=== PATIENT | female | born 1955 | race Caucasian/White ===

== ENCOUNTER 2019-06-17 07:04 | Outpatient (CLI) | payer MEDICARE, SELFPAY ==
--- NOTE | 2019-06-17 | EST_ITS ---
Patient Info Name: Alexa Powell Age: 63 years : 1955 Gender: Female Ht: 60 in Wt: 220 lbs BSA: 2.12 m2 Heart Rhythm: Sinus Rhythm Exam Date: 06/17/2019 8:38 AM Exam Location: [facility] Stress Patient Status: Outpatient Admit Date: 06/17/2019 Staff Ordering Physician: PHYSICIAN NOT ON STAFF, NONSTAFF Attending Provider: PHYSICIAN NOT ON STAFF, NONSTAFF Exercise Technologist: Benitez Dunne, RDCS, RT Nurse: Ramonita Simmons, ANP, ACNP-BC Exam Type: CA stress kyleigh w NM Study Info A regadenoson stress test was performed. Summary 1. No abnormal ST/T wave changes with exercise. 2. No arrhythmias were observed during the examination. 3. Please correlate with nuclear medicine images, reported separately. 4. No chest discomfort with stress test. Protocol: Lexiscan Stress ECG Details Stage: REST Duration (min): 0 min : 15 sec HR (bpm): 89 SBP (mmHg): --- DBP (mmHg): --- Stage: REST Duration (min): 11 min : 19 sec HR (bpm): 85 SBP (mmHg): 150 DBP (mmHg): 91 Stage: STAGE 1 Duration (min): 1 min : 0 sec HR (bpm): 119 SBP (mmHg): 175 DBP (mmHg): 113 Stage: RECOVERY Duration (min): 1 min : 0 sec HR (bpm): 118 SBP (mmHg): 175 DBP (mmHg): 113 Stage: RECOVERY Duration (min): 2 min : 0 sec HR (bpm): 108 SBP (mmHg): 175 DBP (mmHg): 113 Stage: RECOVERY Duration (min): 3 min : 0 sec HR (bpm): 108 SBP (mmHg): 153 DBP (mmHg): 107 Stage: RECOVERY Duration (min): 4 min : 0 sec HR (bpm): 100 SBP (mmHg): 153 DBP (mmHg): 107 Stage: RECOVERY Duration (min): 5 min : 0 sec HR (bpm): 103 SBP (mmHg): 147 DBP (mmHg): 105 Stage: RECOVERY Duration (min): 6 min : 0 sec HR (bpm): 96 SBP (mmHg): 147 DBP (mmHg): 105 Stage: RECOVERY Duration (min): 7 min : 0 sec HR (bpm): 101 SBP (mmHg): 147 DBP (mmHg): 105 Stage: RECOVERY Duration (min): 7 min : 45 sec HR (bpm): 93 SBP (mmHg): 147 DBP (mmHg): 105 Rest HR: 85 bpm Peak HR: 122 bpm Rest Sys BP: 150 mmHg Peak Sys BP: 175 mmHg Max Pred HR: 155 bpm % Max Pred HR: 79 % Target HR: 132 bpm Max RPP: 21,350 bpm*mmHg Total Time: 1 min : 0 sec Rest Garvin BP: 91 mmHg Peak Garvin BP: 113 mmHg Total Dose: 0.4 mg Resting ECG Normal sinus rhythm. Anteroseptal myocardial infarction. Stress ECG No abnormal ST/T wave changes with exercise. Arrhythmias No arrhythmias were observed during the examination. Report Signatures
--- NOTE | ~2019-06-17 | NM_ITS ---
EXAMINATION: NM kyleigh stress w perfusion DATE: 06/17/2019 11:11 INDICATION: Soreness of breath. Localized edema. TECHNIQUE: Rest images were obtained following intravenous administration of 11.8 mCi Tc99m tetrofosm in (Myoview). The patient was infused intravenously with Lexiscan (Regadenoson). Then, 33 mCi Tc99m t etrofosmin (Myoview) was administered intravenously, and stress images were obtained. Data was recons tructed into short axis and horizontal and vertical long axis SPECT images. Gated SPECT images were a lso obtained. COMPARISON: None. FINDINGS: There is no definite reversible or fixed perfusion abnormality to suggest ischemia or infar ction. There is normal left ventricular chamber size, wall motion and ejection fraction. Left ventr icular ejection fraction measures 62%. IMPRESSION: 1. Normal myocardial perfusion at rest and during stress. 2. Left ventricular ejection fraction measuring 62%. Reviewed, dictated and finalized at location A. CTOR SELECTION AND ADMINISTRATION
== END 2019-06-17 07:05 | disposition home or self-care (01) ==
LOC: ANHIMG 07:14
DX: R06.02 Shortness of breath (principal); R60.0 Localized edema
CPT/HCPCS: 78452; 93017; A9502; J2785

== ENCOUNTER 2021-03-20 00:10 | Day surgery (SDC) | payer MEDICARE, SELFPAY ==
[2021-02-08 09:22] VITALS: BMI 40.1
[2021-03-06 13:45] VITALS: BMI 40.1
--- NOTE | 2021-03-20 07:10 | PM.HPGS ---
History of Present Illness History of Present Illness Consent: Risks, benefits, and alternatives have been discussed and questions answered. Patient agrees to proceed with procedure. Chief complaint: neoplasm screening Narrative: Alexa Powell is a 65 year old female referred for colon cancer screening Review of Systems Review of Systems: All systems reviewed & are unremarkable except as noted in HPI and below PMFSH Past Medical History Medical History Arthritis Diabetes Eczema HTN (hypertension) Hypothyroidism Morbid obesity with BMI of 40.0-44.9, adult CHATO (obstructive sleep apnea) Psoriasis Social History Social History Smoking packs per day: 1 Smoking cigarettes per day: 20.0 Years smoked: 15 Smoking pack-years: 15.00 Smoking status: Former smoker Tobacco type: cigarettes Alcohol intake: current Alcohol use details: once a month,glass of wine Substance use: never Substance use type: does not use Living arrangements: alone Spiritual care concerns: No Meds Home Medications and Allergies Home Medications Medication Instructions Recorded Confirmed Type atenolol 50 mg PO BID 02/08/21 03/20/21 History cholecalciferol (vitamin D3) 25 mcg PO DAILY 02/08/21 03/20/21 History [Vitamin D3] glimepiride 2 mg PO DAILY 02/08/21 03/20/21 History levothyroxine 25 mcg PO DAILY 02/08/21 03/20/21 History metformin 500 mg PO BID 02/08/21 03/20/21 History Allergies Allergy/AdvReac Type Severity Reaction Status Date / Time shellfish derived Allergy Severe Hives Verified 03/20/21 08:07 Sulfa (Sulfonamide Allergy Intermediate Hives Verified 03/20/21 08:07 Antibiotics) Exam Resp: Auscultation: clear to auscultation bilaterally Cardio: Rate: regular rate Rhythm: regular rhythm GI: GI Palp: Yes Soft to palpation and No Tenderness to palpation present (GI) Assessment and Plan Assessment and plan (1) Colon cancer screening: Code(s): Z12.11 - Encounter for screening for malignant neoplasm of colon Status: Acute Assessment and Plan: Colonoscopy with possible biopsy or polypectomy or cautery or injection of substances.
--- NOTE | 2021-03-20 07:53 | WPDANESEPPF ---
Anes - Initial Pre Proc Eval Procedure: Operation Date: 03/20/21 09:00 Proposed Procedures p Screening Colonoscopy - Wu Colindres MD Date/Time: 03/20/21 07:53 Surgeon: Wu Colindres MD Pre Op Diagnosis: neoplasm screening Patient Data Age: 65 Gender: F Height: 1.52 m Weight: 93.2 kg Allergies Allergy/AdvReac Type Severity Reaction Status Date / Time shellfish derived Allergy Severe Hives Verified 03/20/21 08:07 Sulfa (Sulfonamide Allergy Intermediate Hives Verified 03/20/21 08:07 Antibiotics) Home Medications Medication Instructions Recorded Confirmed Type atenolol 50 mg PO BID 02/08/21 03/20/21 History cholecalciferol (vitamin D3) 25 mcg PO DAILY 02/08/21 03/20/21 History [Vitamin D3] glimepiride 2 mg PO DAILY 02/08/21 03/20/21 History levothyroxine 25 mcg PO DAILY 02/08/21 03/20/21 History metformin 500 mg PO BID 02/08/21 03/20/21 History Patient hx anesthesia problems: none Family hx anesthesia problems: none Results Review: All pre-operative results and documents have been reviewed as part of the pre-operative evaluation. [facility] Past Medical History Medical History (Updated 03/20/21 @ 07:55 by Fernie Llanes MD) Arthritis Diabetes Eczema HTN (hypertension) Hypothyroidism Morbid obesity with BMI of 40.0-44.9, adult CHATO (obstructive sleep apnea) Psoriasis Social History Social History Smoking packs per day: 1 Smoking cigarettes per day: 20.0 Years smoked: 15 Smoking pack-years: 15.00 Smoking status: Former smoker Tobacco type: cigarettes Alcohol intake: current Alcohol use details: once a month,glass of wine Substance use: never Substance use type: does not use Living arrangements: alone Spiritual care concerns: No Anes - Eval Final PreProcedure Day of Procedure 03/20/21 07:53 Patient weight: morbidly obese Heart: regular rate and rhythm Lungs: clear to auscultation and normal air movement Airway: Mallampati scale class II Neurological: alert and oriented Last oral intake: >/= 8 hours ASA classification: III Emergent: no Anesthetic plan: proceed Anesthesia type and monitoring: general GIVS Results Review: All pre-operative results and documents have been reviewed as part of the pre-operative evaluation. Informed Consent: The patient's anesthetic plan and its attendant risks and benefits were discussed with the patient/family/POA. Questions were solicited and answers provided to the satisfaction of the patient/family/POA.
[2021-03-20 08:09] VITALS: BP 122/58; PULSE 66; RESP 18; TEMP 35.8; O2SAT 96; BMI 38.5
[2021-03-20] MEDS: LACTATED RINGERS 1,000 ML 150 ML IV CONT (08:32)
[2021-03-20 08:33] LABS: Glucose Point of Care 110 mg/dl (65-105)
[2021-03-20 09:19] VITALS: BP 90/45; PULSE 64; RESP 15; O2SAT 98
[2021-03-20 09:29] VITALS: BP 110/59; PULSE 59; RESP 20; O2SAT 99
[2021-03-20 09:39] VITALS: BP 117/69; PULSE 52; RESP 17; O2SAT 99
== END 2021-03-20 09:50 | disposition home or self-care (01) ==
PROVIDERS: PCP Internal Medicine; Visit Provider Internal Medicine Gastroenterology
PROC: 0DJD8ZZ Inspection of Lower Intestinal Tract, Via Natural or Artificial Opening Endoscopic (ICD-10-PCS; CPT 45378; principal; 2021-03-20 09:00)
DX: Z12.11 Encounter for screening for malignant neoplasm of colon (principal); D12.3 Benign neoplasm of transverse colon; K57.30 Diverticulosis of large intestine without perforation or abscess without bleeding; I10 Essential (primary) hypertension; E11.9 Type 2 diabetes mellitus without complications; E03.9 Hypothyroidism, unspecified; G47.33 Obstructive sleep apnea (adult) (pediatric); Z79.84 Long term (current) use of oral hypoglycemic drugs; Z87.891 Personal history of nicotine dependence; E66.01 Morbid (severe) obesity due to excess calories; Z68.38 Body mass index [BMI] 38.0-38.9, adult
CPT/HCPCS: 45381; 45385; 82948; 88305; J2704; J7120

== ENCOUNTER 2021-11-13 08:57 | Emergency (ER) | payer MEDICARE, SELFPAY ==
[2021-11-13] VITALS (17 sets, daily range): BP systolic 128–175; BP diastolic 56–75; PULSE 46–63; RESP 12–18; TEMP 36.4; O2SAT 98–100
--- NOTE | ~2021-11-13 | XR_ITS ---
EXAMINATION: XR chest 2V DATE: 11/13/2021 09:36 INDICATION: Left chest pain. TECHNIQUE: Frontal and lateral views of the chest were obtained. COMPARISON: None. FINDINGS: The chest demonstrates clear lungs without pneumonia, pleural effusion, or pneumothorax. Th e heart size is normal. There is a surgical clip in the abdomen. IMPRESSION: 1. No acute cardiopulmonary disease. Reviewed, dictated and finalized at location A.
--- NOTE | 2021-11-13 08:58 | ECG_ITS ---
Measurements Intervals [place] Rate: 56 P: 8 [place]: 183 QRS: -21 QRSD: 89 T: 7 QT: 414 QTc: 401 Interpretive Statements SINUS BRADYCARDIA BORDERLINE R WAVE PROGRESSION, ANTERIOR LEADS BORDERLINE ECG Electronically Signed On 11-13-2021 11:02:57 CDT by Cruzito Bobby D.O.
[2021-11-13] MEDS: ASPIRIN 81 MG CHEWABLE TABLET 324 MG PO (09:08)
[2021-11-13 09:36] LABS: Basophils Absolute Auto 0.1 K/mm3 (0.0-0.1); Basophils Percent Auto 1.3 % (0.2-1.2); Eosinophils Absolute Auto 0.3 K/mm3 (0-0.3); Hematocrit 41.5 % (37.0-47.0); Hemoglobin 14.4 g/dL (12.0-15.0); Immature Granulocyte Absolute 0.02 K/mm3 (0.00-0.031); Immature Granulocyte Percent A 0.3 % (0-0.5); Lymphocytes Absolute Auto 1.58 K/mm3 (0.9-3.2); Mean Corpuscular HGB Conc 34.7 g/dl (32-36); Mean Corpuscular Hemoglobin 31.8 pg (26-34); Mean Corpuscular Volume 91.6 fl (80-100); Mean Platelet Volume 9.8 fl (7.4-10.4); Monocytes Absolute Auto 0.6 K/mm3 (0.1-0.6); Neutrophils Absolute Auto 3.8 K/mm3 (1.3-6.7); Neutrophils Percent Auto 59.4 % (45.5-73.1); Platelet Count Result 257 k/mm3 (150-375); Red Blood Count 4.53 M/mm3 (4.2-5.4); Red Cell Distribution Width 13.1 % (11.5-14.5); White Blood Count 6.3 K/mm3 (4.5-10.0)
[2021-11-13 09:43] LABS: INR 1.1; Prothrombin Time 13.9 Seconds (11.1-14.7)
[2021-11-13 09:44] LABS: Partial Thromboplastin Time 37.9 SECONDS (22.3-36.8)
[2021-11-13 09:45] LABS: Alanine Aminotransferase 89 U/L (6-35); Albumin Level 4.7 g/dL (3.5-5.1); Alkaline Phosphatase 97 U/L (38-126); Anion Gap 5 mmol/L (8-16); Aspartate Amino Transferase 61 U/L (14-36); Bilirubin,Total 0.5 mg/dL (0.2-1.3); Blood Urea Nitrogen 17 mg/dL (7-17); Calcium 9.4 mg/dL (8.4-10.2); Carbon Dioxide 28 mmol/L (22-30); Chloride 104 mmol/L (98-107); Estimated CRCL calculation 75 ml/min; Estimated Glomerular Filt Rate > 60; Glucose 125 mg/dL (65-110); Lipase 183 U/L (23-300); Potassium 4.1 mmol/L (3.4-5.0); Sodium 137 mmol/L (137-145)
[2021-11-13 09:56] LABS: Troponin I < 0.012 ng/mL (0.000-0.034)
--- NOTE | 2021-11-13 10:15 | ED.CHESTPAIN ---
HPI - Chest Pain General Chief Complaint: Chest Pain <Debra Rosenberg PA-C - Last Filed: 11/13/21 17:42> Stated Complaint: chest pain/ anxiety <ADRIAN Dyer Last Filed: 11/13/21 17:42> Time Seen by Provider: 11/13/21 09:48 <ADRIAN Dyer Last Filed: 11/13/21 17:42> Source: patient <ADRIAN Dyer Last Filed: 11/13/21 17:42> Mode of arrival: ambulatory <ADRIAN Dyer Last Filed: 11/13/21 17:42> Limitations: no limitations <ADRIAN Dyer Last Filed: 11/13/21 17:42> History of Present Illness HPI narrative: Patient is a 66-year-old female who presents to the ED with report of chest pain. Patient reports having intermittent left upper chest pain, radiating into her left shoulder for the past 1 week. She reports having an episode of pain at least once a day. She describes the pain as a burning sensation and tightness. She does have a history of anxiety and GERD and has tried taking omeprazole and an antianxiety medication with the pain, which has provided relief. She denies any exertional chest pain. She notes that typically she experiences the pain at night after she has been working out in the yard and comes into rest. Again denies any pain while exerting herself throughout the day. The pain became worse last night, which prompted patient to come to the ED today. She does note she has been under increased stress lately and has had 6 recent deaths in her life in the last 2 weeks. She has a history of high blood pressure and diabetes, but denies any previous cardiac disease. She had a cardiac evaluation over 10 years ago, it was normal at that time. No smoking. Positive family history. Patient denies any fever, chills, cough, cold symptoms, difficulty breathing, nausea, vomiting, diaphoresis, BLE pain or edema. <ADRIAN Dyer Last Filed: 11/13/21 17:42> Related Data Home Medications: Home Medications Medication Instructions Recorded Confirmed atenolol 50 mg tablet 50 mg PO BID 02/08/21 03/20/21 cholecalciferol (vitamin D3) 25 25 mcg PO DAILY 02/08/21 03/20/21 mcg (1,000 unit) capsule (Vitamin D3) glimepiride 2 mg tablet 2 mg PO DAILY 02/08/21 03/20/21 levothyroxine 25 mcg tablet 25 mcg PO DAILY 02/08/21 03/20/21 metformin 500 mg tablet,extended 500 mg PO BID 02/08/21 03/20/21 release 24 hr <Debra Rosenberg PA-C - Last Filed: 11/13/21 17:42> Allergies/Adverse Reactions: Allergies Allergy/AdvReac Type Severity Reaction Status Date / Time shellfish derived Allergy Severe Hives Verified 03/20/21 08:07 Sulfa (Sulfonamide Allergy Intermediate Hives Verified 03/20/21 08:07 Antibiotics) <Debra Rosenberg PA-C - Last Filed: 11/13/21 17:42> Review of Systems Review of Systems: CONSTITUTIONAL: Denies fever, chills, or sweats. ENT: Denies rhinorrhea, congestion, sore throat. CARDIOVASCULAR: Reports L sided CP into L shoulder. Denies BLE edema. RESPIRATORY: Denies cough or dyspnea. GASTROINTESTINAL: Denies abdominal pain, nausea, vomiting, or diarrhea. GENITOURINARY: Denies dysuria or hematuria. MUSCULOSKELETAL: Denies back pain, BLE pain. NEUROLOGIC: Denies headache, numbness, or weakness. <Debra Rosenberg PA-C - Last Filed: 11/13/21 17:42> All systems reviewed & are unremarkable except as noted in HPI and below <Debra Rosenberg PA-C - Last Filed: 11/13/21 17:42> [facility] Past Medical History Medical History: Medical History (Updated 11/13/21 @ 14:06 by Debra Rosenberg PA-C) Arthritis Diabetes Eczema GERD (gastroesophageal reflux disease) HTN (hypertension) Hypothyroidism Morbid obesity with BMI of 40.0-44.9, adult CHATO (obstructive sleep apnea) Psoriasis <Debra Rosenberg PA-C - Last Filed: 11/13/21 17:42> Surgical History Surgical History: Surgical History (Updated 11/13/21 @ 11:56 by Debra Rosenberg PA-C) No pertinent past surgical history <Debra Rosenberg PA-C - Last Filed: 11/13
[2021-11-13 12:27] LABS: Troponin I < 0.012 ng/mL (0.000-0.034)
[2021-11-13] MEDS: BELLADONNA ALK/PHENOB ELIX 10 ML, MAG HYDROX/ALUMINUM HYD/SIMETH 30 ML, LIDOCAINE HCL 2... PO (13:02)
== END 2021-11-13 14:48 | disposition home or self-care (01) ==
PROVIDERS: Emergency Provider Emergency Medicine; PCP Internal Medicine
DX: R07.89 Other chest pain (principal); K21.9 Gastro-esophageal reflux disease without esophagitis; E11.9 Type 2 diabetes mellitus without complications; E03.9 Hypothyroidism, unspecified; M19.90 Unspecified osteoarthritis, unspecified site; F41.9 Anxiety disorder, unspecified; G47.33 Obstructive sleep apnea (adult) (pediatric); E66.01 Morbid (severe) obesity due to excess calories; Z68.37 Body mass index [BMI] 37.0-37.9, adult; Z87.891 Personal history of nicotine dependence; Z79.84 Long term (current) use of oral hypoglycemic drugs; R00.1 Bradycardia, unspecified; R94.31 Abnormal electrocardiogram [ECG] [EKG]
CPT/HCPCS: 36415; 71046; 80053; 83690; 84484; 85025; 85610; 85730; 93005; 99284; A9270

== ENCOUNTER 2022-08-22 19:24 | Emergency (ER) | payer MEDICARE, SELFPAY ==
--- NOTE | ~2022-08-22 | XR_ITS ---
EXAMINATION: XR chest 2V 08/22/2022 21:04 INDICATION: Chest pain PROCEDURE: 2 view chest COMPARISON: 11/13/2021 FINDINGS: The lungs are clear. The cardiomediastinal silhouette is within normal limits. There are no pleural effusions. There is no pneumothorax suspected. Lateral view is extremely limited by tech nique. IMPRESSION: 1: NO ACUTE CARDIOPULMONARY DISEASE. Reviewed, dictated and finalized at location A.
[2022-08-22 19:48] VITALS: BP 151/67; PULSE 53; RESP 15; O2SAT 97
--- NOTE | 2022-08-22 19:48 | ECG_ITS ---
Measurements Intervals [place] Rate: 51 P: 43 [place]: 178 QRS: -25 QRSD: 97 T: 10 QT: 418 QTc: 388 Interpretive Statements SINUS BRADYCARDIA MINIMAL VOLTAGE CRITERIA FOR LVH, CONSIDER NORMAL VARIANT [MEETS CRITERIA IN ONE OF: R(aVL), S(V1), R(V5), R(V5/V6)+S(V1)] POOR R-WAVE PROGRESSION COMPARED TO ECG 11/13/2021 09:13:23 NO SIGNIFICANT CHANGES Electronically Signed On 08-23-2022 18:17:11 CDT by London Hutchison M.D.
--- NOTE | 2022-08-22 20:22 | ED.CHESTPAIN ---
HPI - Chest Pain General Chief Complaint: Chest Pain Stated Complaint: INTERMITTENT CHEST PAIN X 4 DAYS Time Seen by Provider: 08/22/22 19:53 History of Present Illness HPI narrative: Patient is a 66-year-old female with a history of hypertension, hypothyroidism, diabetes presenting with lightheadedness. Patient states that for the last several days she has had intermittent lightheadedness associated with nausea. 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 When she stood back up she felt very lightheaded, warm, nauseated. States that she suddenly felt very emotional so she told her boss she could not be at work any longer. States that she actually saw her PCP earlier today. He gave her a referral for cardiology. States that she has an appointment with cardiology tomorrow morning. States that she has had intermittent left-sided sharp chest pain for the last 4 to 5 days. States it is random. No new dyspnea or leg swelling. No fevers, cough, vomiting. No new numbness or weakness or difficulty walking or talking. Related Data Home Medications Medication Instructions Recorded Confirmed atenolol 50 mg tablet 50 mg PO BID 02/08/21 03/20/21 cholecalciferol (vitamin D3) 25 25 mcg PO DAILY 02/08/21 03/20/21 mcg (1,000 unit) capsule (Vitamin D3) glimepiride 2 mg tablet 2 mg PO DAILY 02/08/21 03/20/21 levothyroxine 25 mcg tablet 25 mcg PO DAILY 02/08/21 03/20/21 metformin 500 mg tablet,extended 500 mg PO BID 02/08/21 03/20/21 release 24 hr Allergies Allergy/AdvReac Type Severity Reaction Status Date / Time shellfish derived Allergy Severe Hives Verified 08/22/22 19:58 Sulfa (Sulfonamide Allergy Intermediate Hives Verified 08/22/22 19:58 Antibiotics) Review of Systems Review of Systems: All systems reviewed & are unremarkable except as noted in HPI and below PMFSH Past Medical History Medical History Arthritis Diabetes Eczema GERD (gastroesophageal reflux disease) HTN (hypertension) Hypothyroidism Morbid obesity with BMI of 40.0-44.9, adult CHATO (obstructive sleep apnea) Psoriasis Surgical History Surgical History No pertinent past surgical history Family History Family History Other Heart disease Social History Social History Smoking packs per day: 1 Smoking cigarettes per day: 20.0 Years smoked: 15 Smoking pack-years: 15.00 Smoking status: Former smoker Tobacco type: cigarettes Alcohol intake: current Alcohol use details: once a month,glass of wine Substance use: never Substance use type: does not use Living arrangements: alone Spiritual care concerns: No Exam Narrative: GENERAL: Well-appearing, well-nourished, and in no acute distress. HEAD: Normocephalic, atraumatic. EYES: PERRLA and EOMI. ENT: Nares clear, no rhinorrhea or epistaxis. Mucous membranes moist. NECK: Supple. CHEST: Clear to auscultation. No respiratory distress. HEART: Regular rate and rhythm. No murmur heard. Normal peripheral pulses. ABDOMEN: Soft, nontender, nondistended EXTREMITIES: Normal range of motion. No edema. SKIN: Warm, dry, no rash. NEURO: No focal deficits. Alert and oriented x3. PSYCH: Normal mood and affect. Course Vital Signs Vital signs: Vital Signs Pulse Rate 53 L 08/22/22 19:48 Respiratory Rate 15 08/22/22 19:48 Blood Pressure 151/67 H 08/22/22 19:48 Pulse Oximetry 97 08/22/22 19:48 Oxygen Delivery Room Air 08/22/22 19:48 Pulse Rate 58 L 08/22/22 22:18 Respiratory Rate 13 08/22/22 21:28 Blood Pressure 156/77 H 08/22/22 22:18 Pulse Oximetry 100 08/22/22 21:28 Oxygen Delivery Room Air 08/22/22 19:48 MDM - Chest Pain MDM Narrative Medical decision making narrati
[2022-08-22 20:24] VITALS: PULSE 56
[2022-08-22] MEDS: SODIUM CHLORIDE 0.9% IV 1,000 ML 999 ML IV CONT (20:32)
[2022-08-22] MEDS: MORPHINE SULFATE (*CRX) 2 MG/ML INJ IV PUSH (20:33)
[2022-08-22 21:26] LABS: Basophils Absolute Auto 0.1 K/mm3 (0.0-0.1); Eosinophils Absolute Auto 0.2 K/mm3 (0-0.3); Eosinophils Percent Auto 2.9 % (0-4.4); Hematocrit 39.2 % (37.0-47.0); Immature Granulocyte Absolute 0.01 K/mm3 (0.00-0.031); Immature Granulocyte Percent A 0.1 % (0-0.5); Lymphocytes Percent Auto 31.6 % (18.3-44.2); Mean Corpuscular HGB Conc 33.2 g/dl (32-36); Mean Corpuscular Hemoglobin 32.2 pg (26-34); Mean Platelet Volume 9.9 fl (7.4-10.4); Monocytes Absolute Auto 0.7 K/mm3 (0.1-0.6); Monocytes Percent Auto 8.7 % (2.6-8.5); Neutrophils Absolute Auto 4.4 K/mm3 (1.3-6.7); Neutrophils Percent Auto 55.7 % (45.5-73.1); Platelet Count Result 233 k/mm3 (150-375); Red Blood Count 4.04 M/mm3 (4.2-5.4); Red Cell Distribution Width 13.2 % (11.5-14.5); White Blood Count 7.9 K/mm3 (4.5-10.0)
[2022-08-22 21:28] VITALS: BP 178/71; PULSE 51; RESP 13; O2SAT 100
[2022-08-22 21:39] LABS: Alanine Aminotransferase 125 U/L (6-35); Albumin Level 4.1 g/dL (3.5-5.1); Alkaline Phosphatase 91 U/L (38-126); Anion Gap 6 mmol/L (8-16); Aspartate Amino Transferase 101 U/L (14-36); Bilirubin,Total 0.5 mg/dL (0.2-1.3); Blood Urea Nitrogen 14 mg/dL (7-17); Calcium 8.7 mg/dL (8.4-10.2); Carbon Dioxide 28 mmol/L (22-30); Chloride 105 mmol/L (98-107); Estimated CRCL calculation 90 ml/min; Estimated Glomerular Filt Rate > 60; Glucose 131 mg/dL (65-110); Potassium 3.7 mmol/L (3.4-5.0); Sodium 139 mmol/L (137-145)
[2022-08-22 21:42] LABS: INR 1.1; Partial Thromboplastin Time 34.1 SECONDS (22.3-36.8); Prothrombin Time 13.3 Seconds (11.1-14.7)
[2022-08-22 21:44] VITALS: BP 181/75; PULSE 66
[2022-08-22 21:50] LABS: Troponin I < 0.012 ng/mL (0.000-0.034)
[2022-08-22 22:15] VITALS: BP 187/73; PULSE 65
[2022-08-22 22:18] VITALS: BP 156/77; PULSE 58
== END 2022-08-22 23:09 | disposition home or self-care (01) ==
PROVIDERS: Emergency Provider Emergency Medicine; PCP Internal Medicine
DX: R42 Dizziness and giddiness (principal); R07.89 Other chest pain; I10 Essential (primary) hypertension; E03.9 Hypothyroidism, unspecified; E78.00 Pure hypercholesterolemia, unspecified; E11.9 Type 2 diabetes mellitus without complications; M19.90 Unspecified osteoarthritis, unspecified site; K21.9 Gastro-esophageal reflux disease without esophagitis; E66.01 Morbid (severe) obesity due to excess calories; Z68.38 Body mass index [BMI] 38.0-38.9, adult; G47.33 Obstructive sleep apnea (adult) (pediatric); Z87.891 Personal history of nicotine dependence; Z79.84 Long term (current) use of oral hypoglycemic drugs; R00.1 Bradycardia, unspecified; R94.31 Abnormal electrocardiogram [ECG] [EKG]
CPT/HCPCS: 36415; 71046; 80053; 84484; 85025; 85610; 85730; 93005; 96361; 96374; 99284; J2270; J7030

== ENCOUNTER 2024-06-22 09:56 | Outpatient (CLI) | payer MEDICARE, SELFPAY ==
--- NOTE | ~2024-06-22 | MR_ITS ---
EXAMINATION: MR lumbar spine wo con DATE: 06/22/2024 10:44 INDICATION: Low back pain. Lumbar disc protrusion. TECHNIQUE: Magnetic resonance imaging (MRI) of the lumbar spine was performed without intravenous con trast. Sequences included sagittal T2-weighted FSE, sagittal T2-weighted FS FSE, sagittal T1-weighted FSE, and axial T2-weighted FSE. COMPARISON: None FINDINGS: 12 degrees lumbar levoscoliosis. 4 mm anterolisthesis L4 on L5. Mild to moderate left-sided predomina nt disc height loss at L1-L2 and mild to moderate right-sided predominant disc height loss at L2-L3 a nd L3-L4 there are adjacent fibrofatty and fibrovascular degenerative endplate changes at each of the se levels. Marrow signal is otherwise normal. Additional mild disc height loss at L4-L5. The conus me dullaris terminates at L1. There is normal signal in the caudal spinal cord. Paravertebral soft tissu es are unremarkable. The following disc levels are specifically discussed: T12-L1: The disc does not extend beyond the endplate margin. There is mild bilateral facet joint oste oarthritis. There is no neural foraminal stenosis. There is no central canal stenosis. L1-L2: Disc is bulging. There is mild bilateral facet joint osteoarthritis. There is mild to moderate bilateral neural foraminal stenosis. There is mild central canal stenosis. L2-L3: Disc is bulging. There is mild left and mild to moderate right facet joint osteoarthritis. The re is mild to moderate left and moderate right neural foraminal stenosis. There is mild to moderate c entral canal stenosis. L3-L4: Disc is bulging. There is mild to moderate left and moderate to severe right facet joint osteo arthritis. There is mild to moderate left and moderate right neural foraminal stenosis. There is mild to moderate central canal stenosis. L4-L5: Disc is bulging. There is severe bilateral facet joint osteoarthritis. There is mild to modera te bilateral neural foraminal stenosis. There is mild to moderate central canal stenosis. There is al so significant narrowing of the left and right lateral recesses with compression of the bilateral tra versing L5 nerve roots. L5-S1: Disc is mildly bulging. There is severe right and moderate to severe left facet joint osteoart hritis. There is mild bilateral neural foraminal stenosis. The thecal sac terminates at the level of the inferior endplate of L5 with epidural fat surrounding the nerve roots at the level of the disc sp lilliam where there is no stenosis of the central canal. IMPRESSION: 1. 12 degrees lumbar levoscoliosis with moderate spondylosis. 2. 4 mm anterolisthesis L4 on L5 which along with severe bilateral facet osteoarthritis contributes t o significant narrowing of the left and right lateral recess with compression of the traversing bilat eral L5 nerve roots. Reviewed, dictated and finalized at location A. RACTIVE DEVELOPER IMPRESSION: 1. 12 degrees lumbar levoscoliosis with moderate spondylosis. 2. 4 mm anterolisthesis L4 on L5 which along with severe bilateral facet osteoa rthritis contributes to significant narrowing of the left and right lateral rec ess with compression of the traversing bilateral L5 nerve roots.
== END 2024-06-22 09:57 | disposition home or self-care (01) ==
LOC: GOSHIMG 09:57
PROVIDERS: PCP Nurse Practitioner; Visit Provider Nurse Practitioner
DX: M51.26 Other intervertebral disc displacement, lumbar region (principal); M51.369 Other intervertebral disc degeneration, lumbar region without mention of lumbar back pain or lower extremity pain
CPT/HCPCS: 72148